=== PATIENT | female | born 1965 | race Caucasian/White ===

== ENCOUNTER 2018-10-28 22:02 | Emergency (ER) | payer SELFPAY ==
[~2018-10-28] VITALS: Ht 162.6 cm; Wt 138.8 kg
[2018-10-28 22:12] VITALS: Ht 162.6 cm; Wt 138.8 kg
[2018-10-29 00:12] VITALS: BP 139/74
== END 2018-10-29 00:12 | disposition home or self-care (01) ==
LOC: ED 22:02
DX: J02.9 Acute pharyngitis, unspecified (principal); I10 Essential (primary) hypertension; E11.9 Type 2 diabetes mellitus without complications
CPT/HCPCS: Q0163

== ENCOUNTER 2018-11-12 20:46 | Inpatient (IN) | payer MEDICAID ==
[~2018-11-12] VITALS: Ht 154.9 cm; Wt 119.1 kg
[2018-11-12 21:09] VITALS: Ht 154.9 cm; Wt 119.1 kg
--- NOTE | 2018-11-12 21:27 | NUR ---
PT PRESENTS TO ER TODAY WITH C/O OF COUHG FOR APPROX 4 DAYS. PT STATES THAT SHE HAS BEEN SICK WITH A SORE THROAT, GENERALIZED ABD PAIN AND NASAL CONGESTION FOR THE LAST 4 WEEKS. PT DECIDED TO COME TO ER FOR HER COUGH. PT STATES THAT COUGH HAS BEEN NON-PRODUCTIVE. PT STATES THAT COUGH IS ACCOMPANIED BY CP IN THE MIDDLE OF HER CHEST. PT REPORTS 2 EPISODES OF DIARRHEA TODAY BUT DENIES ANY NAUSEA, VOMITING, OR FEVER. PT RATES HER ABD PAIN A 9/10, NO PAIN WITH PALP OF ABD. WHEEZES HEARD BILATERALLY ON AUSCULTATION OF ALL LOBES. PT REPORTS TAKING ROBITUSSIN AT HOME FOR COUGH WITH MINIMAL RELIEF. PT IS A/O X4. RESP ARE EQUAL AND UNLABORED. NO ACUTE DISTRESS NOTED. FAMILY AT BEDSIDE.
[2018-11-12 21:54] LABS: CALCIUM 8.8 mg/dL (8.5-10.1); CARBON DIOXIDE 29.4 mmol/L (21-32); CREATININE SERUM 1.4 mg/dL (0.6-1.0)
[2018-11-12 21:58] LABS: BILIRUBIN TOTAL 0.3 mg/dL (0.20-1.00); TOTAL PROTEIN, SERUM 7.2 g/dL (6.4-8.2)
[2018-11-12 21:59] LABS: ALBUMIN 2.7 g/dL (3.4-5.0)
[2018-11-12 22:35] LABS: BASOPHIL % 0.5 % (0-2); PLATELET COUNT 243 x10^3mcL (130-400)
--- NOTE | 2018-11-12 22:38 | NUR ---
PT SITTING UP IN A POSITION OF COMFORT. PTS O2 AT 93% PT PLACED ON 2L VIA NC. ALL OTHER VITALS ARE WNL. PT COMPLAINING OF PAIN ONLY WHEN SHE COUGHS. NO ACUTE DISTRESS NOTED. MD QUINONEZ AWARE.
--- NOTE | 2018-11-12 23:52 | NUR ---
BREATHING TX IN PROGRESS. PT TOLERATING WELL. 20G SL INSERTED TO L HAND.
[2018-11-13] VITALS (7 sets, daily range): BP systolic 123–146; BP diastolic 42–69
--- NOTE | 2018-11-13 00:04 | NUR ---
PT RESTING COMFORTABLY IN A POSITION OF COMFORT. PT ON 2L VIA NC. NO WHEEZES HEARD ON AUSCULTATION OF ALL LOBES. PTS VITALS WNL. NO ACUTE DISTRESS NOTED.
[2018-11-13] MEDS ORDERED: HYDROCHLOROTHIA25 MG PO (00:54)
--- NOTE | 2018-11-13 00:54 | NUR ---
REPORT GIVEN TO ANGEL TO ASSUME CARE OF PT.
[2018-11-13] MEDS ORDERED: METFORMIN HYD1000 M2 PO (01:02)
[2018-11-13] MEDS ORDERED: HUMALOG100 U/ML SC (01:02)
[2018-11-13] MEDS ORDERED: LEVEMIR100 U/M1 SC (01:02)
[2018-11-13] MEDS ORDERED: HYDROCHLOROTHIA50 MG PO (01:03)
[2018-11-13] MEDS ORDERED: PRINIVIL20 MG PO (01:03)
--- NOTE | 2018-11-13 01:29 | NUR ---
RECEIVED PT FROM ED VIA KIKE. ORIENTED PT TO ROOM AND SURROUNDINSG. IV NOTED TO PATENT AND INTACT. TELE 25 PLACED ON PT READING NSR. INSTRUCTED PT ON THE USE OF CALL LIGHT FOR ASSISTANCE. ENDORSED PT TO PRIMARY NURSE ANGEL
[2018-11-13 02:03] LABS: MAGNESIUM 1.6 mg/dL (1.8-2.4)
[2018-11-13 02:15] LABS: CHOLESTEROL/HDL RATIO 4.8
--- NOTE | 2018-11-13 05:01 | NUR ---
IV BOLUS COMPLETED X2. NO CURRENT ORDER FOR IV FLUIDS. DR CHAMORRO MADE AWARE, STATES PATIENT CAN BE SALINE LOCKED AND WILL MONITOR LABS. PT IN NO ACUTE DISTRESS. RR EVEN/UNLABORED. CALL LIGHT WITHIN REACH. WILL CONTINUE TO MONITOR.
[2018-11-13 07:02] LABS: CALCIUM 8.6 mg/dL (8.5-10.1); CARBON DIOXIDE 29.7 mmol/L (21-32); CREATININE SERUM 1.2 mg/dL (0.6-1.0); POTASSIUM SERUM 5.4 mmol/L (3.5-5.1)
[2018-11-13 07:10] LABS: BASOPHIL % 0.2 % (0-2); PLATELET COUNT 235 x10^3mcL (130-400)
[2018-11-13 07:12] LABS: RED CELL DISTRIBUTION WIDTH 15.2 % (11.5-14.5)
--- NOTE | 2018-11-13 07:40 | NUR ---
PATIENT SLEEPING IN BED, AROUSABLE. NO RESP DISTRESS NOTED, PATIENT ON 2L NC. PATIENT DENIES PAIN. PATIENT IS AMBULATORY WITH MILD WEAKNESS. NS IV INFUSNING AT 150ML/HR TO L HAND, IV SITE CDI, NO REDNESS, SWELLING OR PAIN NOTED. CALL LIGHT WITHIN REACH, BED IN LOW POSITION. WILL CONTINUE TO MONITOR.
--- NOTE | 2018-11-13 09:09 | NUR ---
PATIENT WENT DOWN FOR CT W/OUT CONTRAST,PT WENT DOWN VIA WHEELCHAIR WITH TECH AND SON AT SIDE.
--- NOTE | 2018-11-13 09:35 | NUR ---
PATIENT ARRIVED BACK FROM CT VIA WHEELCHAIR. NO RESP. DISTRESS NOTED, PATIENT ON 2L NC. DR. EUBANKS AWARE PATIENT K WAS 5.4, AND MAG 1.7. KAYEXALATE WAS GIVEN, PATIENT STATES SHE HAD A STOOL. STOOL WAS SOFT, STOOL SAMPLE COLLECTED AND TAKEN DOWN. WILL CONTINUE TO MONITOR PATIENT, CALL LIGHT WITHIN REACH, BED IN LOW POSITION FOR SAFETY.
--- NOTE | 2018-11-13 10:15 | NUR ---
Nutrition Note: FNS consult received for low albumin 2.7 on 11/13/18. Pt. admitted with pnuemonitis with possible bronchitis per H and P documentations. Previously on regular diet at home and no reported GI distress at this time. Albumin levels not considered sole indicator for malnutrition; does not meet high risk criteria at this time. Will be assessed as moderate risk with initial assessment due 11/16-11/18/18.
[2018-11-13 11:14] LABS: microscopic required? YES; urine erythrocyte NEGATIVE (NEGATIVE)
--- NOTE | 2018-11-13 11:18 | NUR ---
PATIENT BLOOD GLUCOSE WAS 477, REASSESSED BLOOD GLUCOSE ON OTHER HAND, BLOOD GLUCOSE WAS 453. PATIENT C/O FRUITY SCENTED BREATHE. DR EUBANKS AWARE OF BLOOD GLUCOSE, AND FRUITY SCENTED BREATH. PATIENT RECEIVED HUMULIN R COVERAGE OF 21UNITS, AND WILL CONTINUE TO MONITOR. CALL LIGHT WITHIN REACH, BED IN LOW POSITION FOR SAFETY PRECAUTION.
[2018-11-13 12:23] LABS: AMPHETAMINE QUAL UR NEGATIVE (See below)
--- NOTE | 2018-11-13 16:19 | NUR ---
Discount pharmacy card and list to [facility] cost medical clinic given to patient by Malachi Davila.
--- NOTE | 2018-11-13 16:30 | NUR ---
PATIENT BLOOD GLUCOSE WAS 437, RN STUDENT NURSE RETOOK PATIENT BLOOD GLUCOSE AND GOT 470. NOTIFIED CHARGE NURSE ALISHA THAT STUDENT TOOK GLUCOSE TWICE, ALISHA SAID TO COVER PATIENT WITH FIRST GLUCOSE CHECK. WILL COVER PATIENT WITH 18 UNITS OF HUMULIN R. CALL LIGHT WITHIN REACH, BED IN LOW POSITION WILL CONTINUE TO MONITOR.
--- NOTE | 2018-11-13 17:00 | NUR ---
PATIENT C/O SOB, RT NOTIFIED FOR BREATHING TREATMENT. CALL LIGHT WITHIN REACH, BED IN LOW POSITION, WILL CONTINUE TO MONITOR.
--- NOTE | 2018-11-13 19:00 | NUR ---
PATIENT RESTING IN BED, NO ACUTE CHANGES THROUGH OUT SHIFT, PATIENT IS STABLE. NO RESP DISTRESS NOTED. PATIENT ON 2L NC. NS IV INFUSING TO LHAND AT 150ML/HR, IV SITE PATENT, NO REDNESS SWELLING OR PAIN NOTED. CALL LIGHT WITHIN REACH, BED IN LOW POSITION, WILL ENDORSE REPORT TO NIGHT NURSE.
--- NOTE | 2018-11-13 19:30 | NUR ---
RECIEVED PATIENT AT START OF SHIFT AWAKE AND ORIENTED X 4. PATIENT IS [place] SPEAKING ONLY. PATIENT DENIES PAIN OR SOB ON 2L NC. BRETAH SOUNDS ARE DIMINISHED BILATERALLY. PATIENT APPEARS FLUSHED WITH RED CHEEKS, AND REPORTS HAVING A SWEET FLAVOR IN HER MOUTH. LAST BLOOD SUGAR WAS 470. PATIENT IS ON MONITOR 25, NSR WITH PEAKED T WAVE. LAST K+ WAS 5.4. KAYEXELATE GIVEN ON DAYSHIFT. PATIENT'S IV TO IS INFUSING WITHOUT ERYTHEMA OR INFILTRATION. BED LOCKED AND IN LOWEST POSITION. CALL LIGHT AND BEDSIDE TABLE WITHIN REACH. DAUGHTER AT BEDSIDE. SAFETY AND USE OF CALL LIGHT REINFORCED. WILL CONTINUE TO MONITOR.
--- NOTE | 2018-11-14 01:31 | NUR ---
PATIENTS EYES ARE CLOSED, BREATHS EVEN. SOCORRO ACUTE CHANGES. WILL CONTINUE TO MONITOR.
[2018-11-14 04:44] VITALS: BP 131/69
--- NOTE | 2018-11-14 06:53 | NUR ---
NO ACUTE EVENTS OVERNIGHT. PATIENT GIVEN CUP FOR SPUTUM CULTURE AND ENCOURAGED TO COUGH. WILL ENDORSE CARE TO MORNING NURSE.
[2018-11-14 09:56] VITALS: BP 130/69
--- NOTE | 2018-11-14 10:28 | NUR ---
pATIENT blood sugar was check at 10:28 PM=323 we fredi check at 11:30
[2018-11-14 13:50] VITALS: BP 143/71
[2018-11-14 17:47] VITALS: BP 147/74
--- NOTE | 2018-11-14 20:49 | NUR ---
PT IS A/O X4, VERBAL RESPONSIVE, ABLE TO TELL WHAT SHE NEEDS. LUNG SOUND DIM SHAYNA, DENY ANY SOB, PO2 98% IN ROOM AIR, PT IS ON TELE 25, NSR, DENY ANY CHEST PAIN OR DISCOMFORT, BOWEL SOUND PRESENT ALL 4 QUADRANTS, NO DISTENTION, NO TENDER. PEDAL PULSE PRESENT BOTH FEET, TRACE EDEMA BLE. IV AT LEFT HAND, NO LEAKING, NO INFILTRATION. ALL ADLS ASSIST, ALL NEED MET, CALL LIGHT IN REACH, WILL CONTINUE TO MONITOR.
[2018-11-14 21:11] VITALS: BP 143/44
--- NOTE | 2018-11-15 05:07 | NUR ---
PT IS SLEEPING, AWAKE BY TOUCH, DENY ANY RESPIRATORY DISTRESS, DENY ANY PAIN OR DISCOMFORT, IV AT RIGTH FA, NO LEAKING, NO INFILTRATION. ALL ADLS ASSIST, ALL NEED MET, CALL LIGHT IN REACH, WILL CONTINUE TO MONITOR.
[2018-11-15 06:02] VITALS: BP 139/71
[2018-11-15 06:21] LABS: BASOPHIL % 0.4 % (0-2); PLATELET COUNT 276 x10^3mcL (130-400)
[2018-11-15 06:34] LABS: RED CELL DISTRIBUTION WIDTH 15.4 % (11.5-14.5)
[2018-11-15 06:50] LABS: CALCIUM 8.4 mg/dL (8.5-10.1); CARBON DIOXIDE 30.7 mmol/L (21-32); CREATININE SERUM 1.1 mg/dL (0.6-1.0); PHOSPHOROUS 3.2 mg/dL (2.5-4.9); POTASSIUM SERUM 4.8 mmol/L (3.5-5.1)
--- NOTE | 2018-11-15 07:30 | NUR ---
RECEIVED PATIENT SITTING UP ON THE SIDE OF THE BED. ALERT ORIENTED ABLE TO VERBALIZE NEEDS WELL. IVF INFUSING WELL TO RT F/A. RESP EVEN AND UNLABORED, LUNGS DIMINISHED ON ROOM AIR, SAT 95%. R.T. PROTOCOL IN PLACE AND PATIENT REMINDED TO USE I.S. 10X/HR W/A. PATIENT'S ABD SOFT AND ROUND, BOWEL SOUNDS ACTIVE DENIES ANY N/V/D. VOIDING WELL. TRACE EDEMA NOTED BLE, PULSES PALABLE. PINK DISCOLORATION NOTED BLE. PER PATIENT IT IS FROM HER DIABETES. AMBULATES TO THE BATHROOM PRN. TELE 25 NSR WITH DEPRESSED T WAVE. WILL CONTINUE TO MONITOR.
[2018-11-15 08:02] VITALS: BP 142/62
[2018-11-15 11:42] VITALS: BP 150/85
--- NOTE | 2018-11-15 11:44 | NUR ---
DR EUBANKS NOTIFIED OF PATIENT'S BUN AND EDITOR TRADE JOURNAL LEVELS THIS AM. PER DR EUBANKS HE IS GOING TO D/C THE [facility], SO DON'T GIVE IT AND HE WILL BE STARTING PATIENT ON AUGMENTIN WHEN SHE IS DISCHARGED.
[2018-11-15] MEDS ORDERED: LAC PO (13:40)
[2018-11-15] MEDS ORDERED: AUGMENTIN 875-1 EACH PO (13:54)
[2018-11-15 13:57] VITALS: BP 150/85
--- NOTE | 2018-11-15 14:56 | NUR ---
PATIENT TO D/C HOME. HL AND TELE DC'D. AWAITIING FAMILY MEMBER TO ARRIVE TO GET DISCHARGE INSTRUCTIONS AND TO TAKE PATIENT HOME.
--- NOTE | 2018-11-15 16:20 | NUR ---
PATIENT READY FOR D/C HOME. FAMILY MEMBERS WHO SPEAK [place] AT BEDSIDE TO GET DC INSTRUCTIONS. PRESCRIPTIONS AND FOLLOW UP INSTRUCTIONS GIVEN. EDUCATION PROVIDED. CONDITION APPEARS STABLE. PERSONAL BELONGINGS LIST SIGNED.
== END 2018-11-15 16:19 | disposition home or self-care (01) | DRG 137 ==
LOC: ED 20:46 → DU 11-13 00:44
PROVIDERS: Emergency Medicine; ADMIT Internal Medicine
DX: J69.0 Pneumonitis due to inhalation of food and vomit (principal); J96.01 Acute respiratory failure with hypoxia; N17.0 Acute kidney failure with tubular necrosis; E43 Unspecified severe protein-calorie malnutrition; D68.69 Other thrombophilia; E11.65 Type 2 diabetes mellitus with hyperglycemia; E66.01 Morbid (severe) obesity due to excess calories; Z68.43 Body mass index [BMI] 50.0-59.9, adult; E83.42 Hypomagnesemia; E87.5 Hyperkalemia; G47.33 Obstructive sleep apnea (adult) (pediatric); R80.9 Proteinuria, unspecified; E78.5 Hyperlipidemia, unspecified; I10 Essential (primary) hypertension; Z79.4 Long term (current) use of insulin; Z79.84 Long term (current) use of oral hypoglycemic drugs; Z71.3 Dietary counseling and surveillance
CPT/HCPCS: 82962; 83880; 87046; 87046-59; 87804; 94150; J0456; J0696; J1644; J1815; J1956; J2405; J2543; J2920; J2930; J7030; J7620